=== PATIENT | female | born 1985 | race African-American/Black ===

== ENCOUNTER 2018-07-05 00:02 | Emergency (ER) | payer SELFPAY ==
[~2018-07-05] VITALS: Ht 157.5 cm; Wt 59.0 kg
[2018-07-05 00:11] VITALS: BP_SYST 111
--- NOTE | 2018-07-05 00:11 | NUR ---
Patient to ER bed 8 to gown for evaluation. Side rails up.
--- NOTE | 2018-07-05 00:14 | NUR ---
ER Dr. Ardon at bedside examining patient.
[2018-07-05] MEDS ORDERED: fentaNYL CITRATE/PF 100 MCG/2 ML AMP IM ONE ×2 (00:30→02:00)
[2018-07-05] MEDS ORDERED: DIPHENHYDRAMINE INJ 50 MG/ML VIAL IM ONE (00:30)
--- NOTE | 2018-07-05 00:40 | NUR ---
Informed patient we needed verification of a ride. Pt states "Alicia Guerra will be picking me up." Dr. Ardon aware. Medication will be given at this time. Pt will be monitored for side effects.
[2018-07-05] MEDS ORDERED: fentaNYL CITRATE/PF 100 MCG/2 ML AMP IVP ONE (01:45)
--- NOTE | 2018-07-05 02:00 | NUR ---
Patient seen walking in hallway reporting pain 8/10 after 50 mcg of Fentanyl. States ride will be here in 4 minutes and wants to be walking out the door. Patient was informed that ride needs to be here prior to administration of next dose of Fentanyl and in order to be discharged. Patient reports that ride cannot come out because she has a baby.
--- NOTE | 2018-07-05 02:07 | NUR ---
Pt AAO x 4. Pt ambulated with steady gait, no acute distress noted.
--- NOTE | 2018-07-05 02:07 | NUR ---
Pt came out of room stating "so am I supposed to get papers, or what? because you guys keep giving the run around." Per patient, "my ride is here and they can't wait for me. I need to leave now." Pt was given discharge instructions, but patient left and jumped into the car without signing discharge paperwork.
== END 2018-07-05 02:07 | disposition home or self-care (01) ==
LOC: SED 00:02
DX: D57.00 Hb-SS disease with crisis, unspecified (principal)
CPT/HCPCS: 96372; 99283; J1200; J3010